=== PATIENT | female | born 1980 | race Caucasian/White ===

== ENCOUNTER 2021-06-16 10:34 | Emergency (ER) | payer OTHER ==
[2021-06-16 10:56] VITALS: BP 122/78; PULSE 92
[2021-06-16] MEDS ORDERED: Sodium Chloride 0.9% 10 ML Syringe FLUSH PRN ×2 (11:26→11:39)
[2021-06-16] MEDS ORDERED: Iopamidol 612 MG/ML 100 ML Bottle IVPUSH ONE (11:39)
[2021-06-16] MEDS ORDERED: cefTRIAXone 1 GM in Sodium Chloride 0.9% 100 ML IV ONE (11:55)
--- NOTE | 2021-06-16 12:20 | EDM.PDOC ---
ED HPI GENERAL MEDICAL PROBLEM - General Chief Complaint: Skin Complaint Stated Complaint: redness to breast Time Seen by Provider: 06/16/21 11:17 Source of Information: Reports: Patient, RN Notes Reviewed History Limitations: Reports: No Limitations - History of Present Illness INITIAL COMMENTS - FREE TEXT/NARRATIVE: Patient is a 41-year-old female presenting to the emergency room with complaints of pain, redness, and swelling to her left breast. Patient reports symptoms came on suddenly this morning. Last evening when going to bed, she had no symptoms. She reports that yesterday she felt a little achy and had some abdominal discomfort, however this resolved. Upon waking this morning, she noticed redness, warmth, and swelling to her left breast. Patient has a history of bilateral mastectomy due to breast cancer done in June of last year. She has bilateral prosthetic breasts. Denies any fever, chills, nausea, or vomiting. She was seen at the clinic in [place] prior to coming here and had blood work completed. CRP was significantly elevated at 67.4, however, the remainder of her work-up was normal. Her mastectomy was prosthetic breast was completed by Dr. Haro at [facility] in [place]. Left Breast Pain Score (Numeric/FACES): 7 - Related Data Allergies Allergy/AdvReac Type Severity Reaction Status Date / Time pine nut Allergy Severe Anaphylactic Verified 06/16/21 10:57 Shock adhesive Allergy Intermediate Rash Verified 06/17/21 14:57 indomethacin AdvReac Mild Nausea Verified 06/17/21 14:57 progesterone AdvReac Mild Nausea Verified 06/17/21 14:57 Home Meds: Home Meds Albuterol Sulfate [Albuterol Sulfate Hfa] 1 puff INH DAILY PRN 06/16/21 [History] Amoxicillin 875 mg PO BID 7 Days #14 tab 06/16/21 [Rx] Doxycycline [Vibra-Tabs] 100 mg PO Q12HR 7 Days #14 tab 06/16/21 [Rx] Fluticasone Propion/Salmeterol [Advair 250-50 Diskus] 1 puff IH DAILY PRN 06/16/21 [History] Phentermine HCl [Adipex-P] 37.5 mg PO DAILY 06/16/21 [History] Tamoxifen Citrate 20 mg PO DAILY 06/16/21 [History] Venlafaxine HCl [Venlafaxine ER] 37.5 mg PO DAILY 06/16/21 [History] Past Medical History HEENT History: Reports: Allergic Rhinitis Other HEENT History: wears glasses Cardiovascular History: Reports: None Respiratory History: Reports: None Gastrointestinal History: Reports: None Genitourinary History: Reports: None [employer] History: Reports: Musculoskeletal History: Reports: Fracture Other Musculoskeletal History: hx of fx right wrist Neurological History: Reports: Concussion Psychiatric History: Reports: Bipolar Endocrine/Metabolic History: Reports: Obesity/BMI 30+ Hematologic History: Reports: None Immunologic History: Reports: None Oncologic (Cancer) History: Reports: Breast, Malignant Melanoma Other Oncologic History: melanoma - Past Surgical History Female Surgical History: Reports: Breast Reconstruction, Section, Mastectomy Oncologic Surgical History: Reports: Mastectomy, Other (See Below) Other Oncologic Surgeries/Procedures: removal of melanomas Dermatological Surgical History: Reports: Skin Biopsy Social & Family History - Family History Cardiac: Reports: CAD Endocrine/Metabolic: Reports: Diabetes, Type I Oncologic: Reports: Other (See Below) Other Oncologic Family History: melanoma - Tobacco Use Tobacco Use Status *Q: Former Tobacco User Used Tobacco, but Quit: Yes Month/Year Tobacco Last Used: 2017 - Recreational Drug Use Recreational Drug Use: No ED ROS GENERAL - Review of Systems Review Of Systems: See Below Constitutional: Reports: No Symptoms. Denies: Fever, Chills, Weakness, Fatigue, Decreased Appetite HEENT: Reports: No Symptoms Respiratory: Reports: No Symptoms Cardiovascular: Reports: No Symptoms Endocrine: Reports: No Symptoms GI/Abdominal: Reports: No Symptoms. Denies: Nausea, Vomiting : Reports: No Symptoms Musculoskeletal: Reports: No Symptoms Skin: Reports: No Symptoms Neurological: Reports: No Symptoms Psychiatric: Reports: No Symptoms Hematologic/Lymphatic: Reports: No Symptoms Immunologic: Reports: No Symptoms Free Text/Narrative/Comment: Redness, warmth, and swelling throughout left breast ED EXAM, SKIN/RASH Exam: See Below Exam Limited By: No Limitations General Appearance: Alert, WD/WN, No Apparent Distress Respiratory/Chest: No Respiratory Distress, Lungs Clear, Normal Breath Sounds, No Accessory Muscle Use, Other (Lateral mastectomy scars with underlying breast prosthesis. Left breast is red, warm, and somewhat firm to palpation. Redness extends to approximately 2 cm below the left breast and encompasses the entire breast. No visible lesions or drainage.) Cardiovascular: Normal Peripheral Pulses, Regular Rate, Rhythm, No Edema, No Gallop, No JVD, No Murmur, No Rub GI/Abdominal: Normal Bowel Sounds, Soft, Non-Tender, No Organomegaly, No Distention, No Abnormal Bruit, No Mass Neurological: Alert, Oriented, CN II-XII Intact, Normal Cognition, Normal Gait, Normal Reflexes, No Motor/Sensory Deficits Psychiatric: Normal Affect, Normal Mood Course - Vital Signs Last Recorded V/S: Last Vital Signs Temp 97.5 F 06/16/21 10:50 Pulse 92 06/16/21 10:50 Resp 18 06/16/21 10:50 BP 122/78 06/16/21 10:50 Pulse Ox 98 06/16/21 10:50 - Orders/Labs/Meds Labs: Laboratory Tests 06/16/21 06/16/21 Range/Units 11:49 11:49 WBC 7.63 (3.98-10.04) K/mm3 RBC 4.24 (3.98-5.22) M/mm3 Hgb 12.0 (11.2-15.7) gm/dl Hct 36.5 (34.1-44.9) % MCV 86.1 (79.4-94.8) fl MCH 28.3 (25.6-32.2) pg MCHC 32.9 (32.2-35.5) g/dl RDW Std Deviation 41.7 (36.4-46.3) fL Plt Count 141 L (182-369) K/mm3 MPV 11.7 (9.4-12.3) fl Neut % (Auto) 82.6 H (34.0-71.1) % Lymph % (Auto) 9.0 L (19.3-51.7) % Cobb % (Auto) 6.4 (4.7-12.5) % Eos % (Auto) 1.4 (0.7-5.8) Baso % (Auto) 0.3 (0.1-1.2) % Neut # (Auto) 6.30 H (1.56-6.13) K/mm3 Lymph # (Auto) 0.69 L (1.18-3.74) K/mm3 Cobb # (Auto) 0.49 H (0.24-0.36) K/mm3 Eos # (Auto) 0.11 (0.04-0.36) K/mm3 Baso # (Auto) 0.02 (0.01-0.08) K/mm3 Sodium 139 (136-145) mEq/L Potassium 3.4 L (3.5-5.1) mEq/L Chloride 105 (98-107) mEq/L Carbon Dioxide 23 (21-32) mEq/L Anion Gap 14.4 (5-15) BUN 10 (7-18) mg/dL Creatinine 1.0 (0.55-1.02) mg/dL Est Cr Clr Drug Dosing 73.17 mL/min Estimated GFR (MDRD) > 60 (>60) mL/min BUN/Creatinine Ratio 10.0 L (14-18) Glucose 97 (70-99) mg/dL Calcium 8.5 (8.5-10.1) mg/dL Total Bilirubin 0.3 (0.2-1.0) mg/dL AST 16 (15-37) U/L ALT 18 (14-59) U/L Alkaline Phosphatase 59 (46-116) U/L C-Reactive Protein 9.7 H* (<1.0) mg/dL Total Protein 6.7 (6.4-8.2) g/dl Albumin 3.3 L (3.4-5.0) g/dl Globulin 3.4 gm/dL Albumin/Globulin Ratio 1.0 (1-2) Meds: Medications Discontinued Medications Generic Name Dose Route Start Last Admin Trade Name Freq PRN Reason Stop Dose Admin Ceftriaxone Sodium 1 gm/ 100 mls @ 200 mls/hr 06/16/21 11:55 06/16/21 12:29 Sodium Chloride IV 06/16/21 12:24 200 mls/hr ONETIME ONE Administration Iopamidol 100 ml 06/16/21 11:39 06/16/21 12:08 Iopamidol 612 Mg/Ml 100 Ml Bottle IVPUSH 06/16/21 11:40 100 ml ONETIME ONE Administration Sodium Chloride 10 ml 06/16/21 11:26 06/16/21 11:55 Sodium Chloride 0.9% 10 Ml Syringe FLUSH 10 ml ASDIRECTED PRN Administration Keep Vein Open Sodium Chloride 10 ml 06/16/21 11:39 06/16/21 12:08 Sodium Chloride 0.9% 10 Ml Syringe FLUSH 10 ml ONETIME PRN Administration IV FLUSH - Re-Assessments/Exams Free Text/Narrative Re-Assessment/Exam: Patient is a 41-year-old female presenting to the emergency department with complaints of acute onset of redness and warmth to her left breast. States she awoke with the symptoms this morning. She was seen in the clinic in [place] prior to coming to ER and found to have an elevated CRP but blood work otherwise normal. On exam, she does have diffuse, redness, and warmth throughout the left breast and extending slightly below. She is had no fever, chills, nausea, or vomiting. I have ordered blood work including blood cultures and a CT scan of the chest with IV contrast. Once cultures are elected, I will give Rocephin 1 g IV. 06/16/21 13:14 Hematology significant for potassium slightly low at 3.4, CRP elevated 9.7. WBCs are normal. CT scan of the chest impression as follows: 1. Bilateral breast prosthesis. 2. Slight inflammatory change on the lateral portion of the left breast prosthesis as well as skin thickening and mild inflammatory change within the subcutaneous fat inferior to the prosthesis. These findings are felt to represent change from prior surgery as well as cellulitis. No abscess is seen. 3. Other portions of the chest CT showed nothing acute. Case was discussed with the plastic surgeon on-call Dr. Riley. Since there is no abscess, he recommends normal cellulitis treatment. Patient did receive Rocephin 1 g IV. She will be started on doxycycline and amoxicillin for treatment of cellulitis. Discussed that if she should develop fever, increased fatigue, nausea vomiting, or any other concerning symptoms, she should return to the emergency department. I would like her follow-up in the clinic on Monday to have blood work rechecked and be reexamined. I did kal the area of erythema on her left breast so that she may monitor its progression. Discharge instructions as documented. Departure - Departure Time of Disposition: 13:16 Disposition: Home, Self-Care 01 Condition: Good Clinical Impression: Cellulitis Qualifiers: Site of cellulitis: trunk Site of cellulitis of trunk: unspecified site Qualified Code(s): L03.319 - Cellulitis of trunk, unspecified - Discharge Information *PRESCRIPTION DRUG MONITORING PROGRAM REVIEWED*: No *COPY OF PRESCRIPTION DRUG MONITORING REPORT IN PATIENT STEFF: No Prescriptions: Amoxicillin 875 mg PO BID 7 Days #14 tab Doxycycline [Vibra-Tabs] 100 mg PO Q12HR 7 Days #14 tab Instructions: Cellulitis, Adult, [id number] Referrals: PCP,Not In Area [Primary Care Provider] - Forms: ED Department Discharge Additional Instructions: You were seen in the emergency department today for redness and swelling to your left breast. Work-up included blood work and a CT scan of your chest. Results of work-up indicate that you have cellulitis which is an infection of the soft tissue. There is no abscess visible. Your case was discussed with the plastic surgeon on-call for Dr. Dorothy Cuevas. Recommendation is for antibiotic treatment for cellulitis. While in the ER, you received IV antibiotics. You have been started on amoxicillin and doxycycline. Take these as prescribed starting today. I would recommend that you follow-up with your primary care provider on Monday for reevaluation and to have blood work rechecked. If you should develop worsening symptoms such as onset of fever, vomiting, malaise, or redness spreading significantly beyond the demarcated areas on your chest, please return to the emergency department for reevaluation. Sepsis Event Note (ED) - Evaluation Sepsis Screening Result: No Definite Risk
--- NOTE | 2021-06-16 12:28 | CT ---
CT chest Technique: Multiple axial sections were obtained from above the lung apices inferiorly through the lung bases. Intravenous contrast was utilized. Comparison: No prior chest imaging is available. Findings: Bilateral breast prostheses are noted. Slight inflammatory change is seen around the lateral portion of the left breast prosthesis as well as mild skin thickening and slight inflammatory change within the inferior subcutaneous fat. Right breast prosthesis appears within normal limits. Mediastinum shows normal appearance of the thoracic aorta. No mediastinal or hilar adenopathy is seen. No axillary adenopathy is seen. Surgical clips are seen within the left axillary region. No pericardial thickening is seen. Small portion of the visualized upper abdominal structures show nothing acute. Lung window settings were reviewed. No acute parenchymal lung change is seen on either side. No pleural effusions are seen. No pneumothorax is noted. Bone window settings were reviewed which appear within normal limits for the patient's age. Impression: 1. Bilateral breast prostheses. 2. Slight inflammatory change around the lateral portion of the left breast prosthesis as well as skin thickening and mild inflammatory change within the subcutaneous fat inferior to the prosthesis. These findings are felt to represent change from prior surgery as well as cellulitis. No abscess is seen. 3. Other portions of the chest CT showed nothing acute. Diagnostic code #3
== END 2021-06-16 13:34 | disposition home or self-care (01) ==
LOC: JD.ED 10:34
DX: N61.0 Mastitis without abscess (principal); E66.9 Obesity, unspecified; Z68.37 Body mass index [BMI] 37.0-37.9, adult; Z87.891 Personal history of nicotine dependence; Z88.8 Allergy status to other drugs, medicaments and biological substances; Z91.048 Other nonmedicinal substance allergy status; Z91.010 Allergy to peanuts
CPT/HCPCS: 36415; 71260; 80053; 85025; 86140; 87040; 96365; 99284; J0696; Q9967